=== PATIENT | male | born 1940 | race Caucasian/White ===

== ENCOUNTER 2023-05-01 08:59 | Outpatient (OUT) | payer MEDICARE, SELFPAY ==
[2023-05-01 09:26] LABS: Basophils Percent Auto 0.3 % (0.2-2.0); Eosinophils Absolute Auto 0.2 10^3/uL (0.0-0.7); Eosinophils Percent Auto 2.9 % (0.9-7.0); Hematocrit 41.5 % (42.0-54.0); Hemoglobin 13.8 g/dL (14.0-18.0); Immature Granulocytes Abs Auto 0.02 10^3/uL (0.00-0.03); Immature Granulocytes Pct Auto 0.3 % (0.0-0.5); Lymphocytes Absolute Auto 1.6 10^3/uL (1.2-3.8); Lymphocytes Percent Auto 24.8 % (20.5-60.0); Mean Corpuscular HGB Conc 33.3 g/dL (29.9-35.2); Mean Corpuscular Hemoglobin 30.7 pg (25.9-34.0); Mean Corpuscular Volume 92.4 fL (80.0-94.0); Mean Platelet Volume 11.1 fL (9.5-13.5); Monocytes Absolute Auto 0.6 10^3/uL (0.3-0.8); Monocytes Percent Auto 9.6 % (1.7-12.0); Neutrophils Absolute Auto 4.1 10^3/uL (1.4-6.5); Neutrophils Percent Auto 62.1 % (43.0-75.0); Platelet Count 186 10^3/uL (150-450); Red Blood Count 4.49 10^6/uL (4.70-6.10); Red Cell Distribution Width 12.7 % (11.0-15.0); White Blood Count 6.5 10^3/uL (4.0-11.0)
[2023-05-01 10:15] LABS: Alanine Aminotransferase 24 U/L (16-63); Albumin Globulin Ratio 1.2; Albumin Level 3.6 g/dL (3.4-5.0); Alkaline Phosphatase 93 U/L (46-116); Anion Gap 14.5; Aspartate Amino Transferase 14 U/L (15-37); BUN Creatinine Ratio 20.1; Bilirubin Total 0.5 mg/dL (0.2-1.0); Calcium 9.1 mg/dL (8.5-10.1); Carbon Dioxide 25.1 mmol/L (21.0-32.0); Chloride 107 mmol/L (98-107); Chol HDL Ratio 3.2; Cholesterol 127 mg/dL (<=200); Estimated GFR (African America 53 (>=60); Estimated GFR (Non-African Ame 43 (>=60); Glucose 104 mg/dL (74-106); HDL Cholesterol 40 mg/dL (40-60); LDL Cholesterol Calculated 74.4 mg/dL; Potassium 4.6 mmol/L (3.5-5.1); Sodium 142 mmol/L (136-145); Total Protein 6.6 g/dL (6.4-8.2); Triglycerides 63 mg/dL (<=150); VLDL CHOLESTEROL 12.6 mg/dL
[2023-05-01 10:26] LABS: Prostate Specific Antigen Dx 10.22 ng/mL (<=4.00)
== END 2023-05-01 09:00 | disposition home or self-care (01) ==
LOC: LAB 08:59
PROVIDERS: PCP Family Medicine; Visit Provider Family Medicine
DX: I10 Essential (primary) hypertension (principal); N40.0 Benign prostatic hyperplasia without lower urinary tract symptoms; E78.5 Hyperlipidemia, unspecified
CPT/HCPCS: 36415; 80053; 80061; 84153; 85025

== ENCOUNTER 2025-06-15 12:37 | Emergency (ER) | payer MEDICARE, SELFPAY ==
[2025-06-15] VITALS (24 sets, daily range): BP systolic 142–172; BP diastolic 75–87; PULSE 66–95; TEMP 36.6; O2SAT 98–100; BMI 18.6
--- NOTE | 2025-06-15 12:56 | ED_ITS ---
HPI HPI - General Adult General Chief complaint: Nausea/Vomiting/Diarrhea Stated complaint: NAUSEA Time Seen by Provider: 06/15/25 12:49 Source: patient Mode of arrival: ambulance Limitations: no limitations History of Present Illness HPI narrative: The patient is a 85-year-old male who presents to the emergency department today for evaluation of concerns for nausea without vomiting. He endorses suddenly this afternoon he began having some generalized abdominal discomfort and feeling nauseous. He reports feeling a little lightheaded and unsteady on his feet. Otherwise no dizziness or syncope. Denies any chest pain or shortness of breath. No urinary symptoms or back/flank pain. Denies any diarrhea. He denies any significant medical or surgical history other than hy pertension which he takes lisinopril for. Related Data Home Medications ?Medication ?Instructions ?Recorded ?Confirmed lisinopril 20 mg tablet 20 mg PO DAILY 06/15/2506/01 Previous Rx's ?Medication ?Instructions ?Recorded ondansetron 4 mg disintegrating 4 mg PO Q8H PRN nausea and 06/15/25 tablet vomiting 4 days #10 tabs Allergies Allergy/AdvReac Type Severity Reaction Status Date / Time No Known Drug Allergies Allergy Verified 06/15/25 12:47 Review of Systems ROS Status of ROS 10 or more systems reviewed and unremark able except as noted in history and below PFSH PFSH Social History Little interest or pleasure in doing things: not at all Feeling down, depressed, or hopeless: not at all Exam Narrative Exam Narrative: Constituational: Awake/ alert, no apparent distress, well hydrated HENMT: normocephalic, external ears normal, moist oral mucous membranes and oropharynx normal Eyes: EOMI and conjunctivae normal Neck: ROM intact Chest: inspection of chest normal Respiratory: Normal respiratory effort, clear to auscultation bilaterally Cardio: regular rate and regular rhythm GI: soft to palpation and non-tender Back: nontender MSK: ROM intact, +NVI Skin: no rashes or petechiae Neuro: no focal deficits Psych: mental status grossly normal Constitutional Vital Signs, click to edit/add: Last Vital Signs Temp 98 F 06/15/25 12:44 Pulse 84 06/15/25 15:30 Resp 24 H 06/15/25 15:30 BP 147/77 H 06/15/25 15:30 Pulse Ox 98 06/15/25 15:30 O2 Del Method Room Air 06/15/25 12:44 Course Vital Signs Vital signs: Vital Signs Pulse Oximetry 100 06/15/25 12:39 Temperature 98 F 06/15/25 12:44 Pulse Rate 84 06/15/25 15:30 Respiratory Rate 24 H 06/15/25 15:30 Blood Pressure 147/77 H 06/15/25 15:30 Pulse Oximetry 98 06/15/25 15:30 Oxygen Delivery Method Room Air 06/15/25 12:44 Medical Decision Making MDM Narrative Medical decision making narrative: The patient is an 85-year-old male who presented to the emergency department today for evaluation concerns for nausea and vomiting of sudden onset with some generalized weakness. Initial examination vital signs overall stable. No concerning neurologic or strokelike findings on exam. He additionally does not appear to be exhibiting any ischemic symptoms and for the most right does appear euvolemic on exam. No acute abdominal findings on exam. Vital signs otherwise stable. Labs stable as below. EKG without acute changes and troponin negative x 1. Patient did receive supportive measures of Zofran and IV fluids and on reevaluation he reported some improvement in condition. He is tolerating oral intake with no subsequent nausea or vomiting. Chest x-ray without critical findings. CT imaging of abdomen and pelvis noted incidental finding of infrarenal abdominal aortic aneurysm of 5.3 cm. Did discuss patient's condition with vascular surgeon Dr. Nicholson from [facility] 15:37p-> patient follow-up with vascular surgeon Dr. Hester. Discussed the above findings and recommendations for supportive care likely gastroenteritis with the patient and his family who are present at the bedside. Will discharge home with Zofran as needed. Advised on follow-up with vascular surgery and patient's PCP for reevaluation. Discussed signs and symptoms of any worsening condition and when to consider reevaluation by the emergency department. Patient and his family verbalized an understanding of this and are agreeable to plan to be discharged home Medical Records Medical records reviewed: Yes I reviewed the patient's medical records Lab Data Lab results reviewed: Yes I reviewed the patient's lab results Labs: Lab Results 06/15/25 06/15/25 06/15/25 Range/Units 12:55 13:05 14:23 WBC 9.6 (4.0-11.0) 10^3/uL RBC 4.65 L (4.70-6.10) 10^6/uL Hgb 14.4 (14.0-18.0) g/dL Hct 41.5 L (42.0-54.0) % MCV 89.2 (80.0-94.0) fL MCH 31.0 (25.9-34.0) pg MCHC 34.7 (29.9-35.2) g/dL RDW 12.4 (11.0-15.0) % Plt Count 172 (150-450) 10^3/uL MPV 11.4 (9.5-13.5) fL Seg Neuts % (Manual) 88.0 H (43.0-75.0) Lymphocytes % (Manual) 5.0 L (20.5-60.0) % Monocytes % (Manual) 6.0 (1.7-12.0) % Eosinophils % (Manual) 1.0 (0.9-7.0) % Basophils % (Manual) 0.0 L (0.2-2.0) % Neutrophils # (Manual) 8.44 H (1.4-6.5) 10^3/uL Lymphocytes # (Manual) 0.48 L (1.20-3.80) 10^3/uL Monocytes # (Manual) 0.57 (0.30-0.80) 10^3/uL Eosinophils # (Manual) 0.09 (0.00-0.70) 10^3/uL Basophils # (Manual) 0.00 (0.00-0.10) 10^3/uL Sodium 141 (136-145) mmol/L Potassium 4.2 (3.5-5.1) mmol/L Chloride 107 (98-107) mmol/L Carbon Dioxide 21.1 (21.0-32.0) mmol/L Anion Gap 17.1 BUN 30.0 H (7.0-18.0) mg/dL Creatinine 1.58 H (0.70-1.30) mg/dL Est GFR ( Amer) 51 L (>=60 mL/min/1.73m^2) Est GFR (Non-Af Amer) 42 L (>=60 mL/min/1.73m^2) BUN/Creatinine Ratio 19.0 Glucose 154 H (74-106) mg/dL Calcium 9.7 (8.5-10.1) mg/dL Total Bilirubin 0.7 (0.2-1.0) mg/dL AST 16 (15-37) U/L ALT 22 (16-63) U/L Alkaline Phosphatase 98 (46-116) U/L Troponin I High Sens 6.4 (4.0-76.1) pg/mL Total Protein 6.6 (6.4-8.2) g/dL Albumin 3.8 (3.4-5.0) g/dL Globulin 2.8 g/dL Albumin/Globulin Ratio 1.4 Lipase 50.0 (16.0-77.0) U/L Urine Color Lt. yellow (YELLOW) Urine Clarity Clear (CLEAR) Urine pH 6.0 (5.0-9.0) Ur Specific [place] 1.020 (1.005-1.025) Urine Protein 30 A (NEG/TRACE) mg/dL Urine Glucose (UA) Negative (NEGATIVE) mg/dL Urine Ketones 15 A (NEGATIVE) mg/dL Urine Occult Blood Negative (NEGATIVE) Urine Nitrite Negative (NEGATIVE) Urine Bilirubin Negative (NEGATIVE) Urine Urobilinogen 0.2 (0.2-1.0) EU/dL Ur Leukocyte Esterase Negative (NEGATIVE) Urine RBC 0-2 (0-2) #/HPF Urine WBC 0-2 A (NONE SEEN) #/HPF Ur Squamous Epith Cells Rare (NONE/RARE) #/LPF Urine Crystals None seen (None Seen) #/HPF Urine Bacteria Trace A (NONE SEEN) #/HPF Urine Casts None seen (NONE SEEN) #/LPF Urine Mucus Trace A (NONE SEEN) Ur Culture Indicated? No POC Glucose 143 H (74-106) mg/dL ECG Data Attestation: I personally reviewed and interpreted this ECG as follows: (SR with HR 95, no acute/ischemic changes) Discharge Plan Discharge Chief Complaint: Nausea/Vomiting/Diarrhea Clinical Impression: Gastroenteritis, Abdominal aortic aneurysm (AAA) 3.0 cm to 5.5 cm in diameter in male Patient Disposition: Home, Self-Care Prescriptions / Home Meds: New ondansetron 4 mg tablet,disintegrating 4 mg PO Q8H PRN (Reason: nausea and vomiting) 4 Days Qty: 10 0RF No Action lisinopril 20 mg tablet 20 mg PO DAILY Print Language: Czech Instructions: Acute Nausea and Vomiting (DC) Additional Instructions: Continue your blood pressure medication. You were noted to have an abdominal aortic aneurysm on the CT scan today. Please follow-up with Dr. Hester for reevaluation who is local to the area. Zofran as needed for any nausea or vomiting. Stay hydrated and drink plenty of fluids. Recommend following a bland diet and advancing this as tolerated. Please follow with your primary care provider for reevaluation as discussed from the emergency department today. May return to the ER with any new or worsening symptoms/concerns. Referrals: ZURI JOHNSON [Physician, Family Practice] - 1 week Lucrecia Hester MD [Physician, Vascular Surgery] - 1 week
--- NOTE | 2025-06-15 12:57 | ECG_ITS ---
The [facility] Test Date: 2025-06-15 Pat Name: AMY HIRSCH Department: Room: - Gender: Male Odd Bundle Worker: : 1940 Requested By: [id number] Order Number: [id number] Reading MD: CHARLEY GONZALEZ M.D. Measurements Intervals [place] Rate: 89 P: 98 NV: 154 QRS: 65 QRSD: 78 T: 50 QT: 366 QTc: 413 Interpretive Statements 1100 Sinus rhythm 1574 with frequent ventricular premature complexes [address] depression [address] & [place] abnormality 9150 abnormal ECG No previous ECG available for comparison Electronically Signed On 06-15-2025 20:53:41 EDT by CHARLEY GONZALEZ M.D.
--- NOTE | 2025-06-15 12:57 | CT_ITS ---
The [address] [address] Patient Name: AMY HIRSCH MRN: [id number] date: 1940 Sex: M Assigned Patient Location: ER Current Patient Location: ER Accession/Order Number: [id number] Exam Date: 06/15/2025 15:01 Report Date: 06/15/2025 15:06 At the request of: ABHI COLUNGA NP Procedure: CT abdomen pelvis w con CT ABDOMEN AND PELVIS WITH INTRAVENOUS CONTRAST: CLINICAL HISTORY: N/V COMPARISON: None TECHNIQUE: Spiral images were obtained through the abdomen and pelvis following the administration of intravenous contrast. This CT exam was performed using one or more following dose reduction techniques: Automated exposure control, adjustment of the mA and/or kV according to patient size, or use of iterative reconstruction technique. FINDINGS: Lung Bases: [Emphysema. Mild lung scarring.] Organs:Liver portal vein spleen pancreas and adrenal glands all appear unremarkable. Left nephrolithiasis with a stone measuring approximately 14 mm in greatest axial dimension with obstruction of the superior pole calyx. This appears chronic with thinning of the cortex. Additional smaller calculi are seen involving the inferior pole of the left kidney.[Subcentimeter low attenuating lesions are seen within the right kidney too small for accurate characterization. Fusiform type infrarenal abdominal aortic aneurysm measuring 5.3 cm. GI: Stomach is grossly unremarkable. Small bowel appears nondilated. Colonic diverticulosis.[ Pelvis:[Multiple dependent urinary bladder calculi. Prostatomegaly.] Peritoneum/Retroperitoneum:No free air or free fluid or lymphadenopathy.[ Abd wall/Bones:Abdominal wall demonstrates no acute findings. Osseous structures demonstrate degenerative change. CT/CT abdomen pelvis w con IMPRESSION: Left nephrolithiasis largest stone measuring 14 mm with obstruction of the superior pole calyx. This appears chronic in nature. Fusiform type infrarenal abdominal aortic aneurysm measuring 5.3 cm. Vascular surgery consultation is suggested. Colonic diverticulosis. Multiple urinary bladder calculi. Impression dictated by: Tadeo Newton Jr., D.O. 06/15/2025 3:06 PM Dictation Location: [place] [address] Electronically authenticated by: [id number] Y Date: 06/15/2025 15:06
--- NOTE | 2025-06-15 12:57 | XR_ITS ---
The [address] [address] Patient Name: AMY HIRSCH MRN: [id number] date: 1940 Sex: M Assigned Patient Location: ER Current Patient Location: ER Accession/Order Number: [id number] Exam Date: 06/15/2025 13:58 Report Date: 06/15/2025 13:58 At the request of: ABHI COLUNGA NP Procedure: XR chest 1V Single view chest: CLINICAL HISTORY: N/V COMPARISON: None FINDINGS: Heart appears normal in size. Chronic appearing interstitial changes. No consolidation pneumothorax pleural effusion or free air. XR/XR chest 1V IMPRESSION: CHRONIC APPEARING INTERSTITIAL CHANGES. NO CONSOLIDATION TO SUGGEST PNEUMONIA. Impression dictated by: Tadeo Newton Jr., D.OOscar 06/15/2025 1:58 PM Dictation Location: [place] [address] Electronically authenticated by: [id number] Y Date: 06/15/2025 13:58
[2025-06-15] MEDS: 0.9 % SODIUM CHLORIDE 1,000 ML 1000 ML IV (13:07)
[2025-06-15 13:10] LABS: Hematocrit 41.5 % (42.0-54.0); Hemoglobin 14.4 g/dL (14.0-18.0); Mean Corpuscular HGB Conc 34.7 g/dL (29.9-35.2); Mean Corpuscular Hemoglobin 31.0 pg (25.9-34.0); Mean Corpuscular Volume 89.2 fL (80.0-94.0); Platelet Count 172 10^3/uL (150-450); Red Blood Count 4.65 10^6/uL (4.70-6.10); White Blood Count 9.6 10^3/uL (4.0-11.0)
[2025-06-15 13:45] LABS: Basophils Abs Manual 0.00 10^3/uL (0.00-0.10); Basophils Percent Manual 0.0 % (0.2-2.0); Eosinophils Absolute Manual 0.09 10^3/uL (0.00-0.70); Eosinophils Percent Manual 1.0 % (0.9-7.0); Lymphocytes Absolute Manual 0.48 10^3/uL (1.20-3.80); Lymphocytes Percent Manual 5.0 % (20.5-60.0); Monocytes Absolute Manual 0.57 10^3/uL (0.30-0.80); Monocytes Percent Manual 6.0 % (1.7-12.0); Segmented Neut Absolute Manual 8.44 10^3/uL (1.4-6.5); Segmented Neutrophils % Manual 88.0 (43.0-75.0)
[2025-06-15 13:48] LABS: Alanine Aminotransferase 22 U/L (16-63); Albumin Globulin Ratio 1.4; Albumin Level 3.8 g/dL (3.4-5.0); Alkaline Phosphatase 98 U/L (46-116); Anion Gap 17.1; Aspartate Amino Transferase 16 U/L (15-37); Blood Urea Nitrogen 30.0 mg/dL (7.0-18.0); Calcium 9.7 mg/dL (8.5-10.1); Carbon Dioxide 21.1 mmol/L (21.0-32.0); Chloride 107 mmol/L (98-107); Estimated GFR (African America 51 (>=60 mL/min/1.73m^2); Estimated GFR (Non-African Ame 42 (>=60 mL/min/1.73m^2); Globulin 2.8 g/dL; Glucose 154 mg/dL (74-106); Lipase 50.0 U/L (16.0-77.0); Potassium 4.2 mmol/L (3.5-5.1); Sodium 141 mmol/L (136-145); Total Protein 6.6 g/dL (6.4-8.2)
[2025-06-15 14:33] LABS: Glucose Urine UA NEGATIVE (NEGATIVE)
[2025-06-15 14:45] LABS: Cast Seen? NONE SEEN #/LPF (NONE SEEN); Crystals Seen? None Seen #/HPF (None Seen); Urine Culture Indicated NO
== END 2025-06-15 16:00 | disposition home or self-care (01) ==
PROVIDERS: Nurse Practitioner; Emergency Provider Emergency Medicine; PCP Nurse Practitioner Family
DX: K52.9 Noninfective gastroenteritis and colitis, unspecified (principal); I71.40 Abdominal aortic aneurysm, without rupture, unspecified; R11.2 Nausea with vomiting, unspecified; R53.1 Weakness
CPT/HCPCS: 36415; 71045; 74177; 80053; 81001; 83690; 84484; 85007; 85027; 93005; 96374; 99285; J2405; Q9966